=== PATIENT | female | born 1975 | race American Indian/Alaskan Native ===

== ENCOUNTER 2017-02-28 18:50 | Emergency (ER) | payer OTHER ==
--- NOTE | 2017-02-28 19:59 | Emergency Department Report ---
ED ENT HPI - General Chief complaint: Dental/Oral Stated complaint: LEFT SIDE JAW SWOLLE, TOOTHACHE Time Seen by Provider: 02/28/17 19:16 Source: patient Mode of arrival: Ambulatory Limitations: No Limitations - History of Present Illness Initial comments: Patient presents to ED with c/o left lower tooth pain for the past week, worsening with time; denies facial swelling, fevers, bleeding and drainage; made an appt with dentist for upcoming Thursday; has been taking ibuprofen which has been helping temporarily MD complaint: tooth pain Onset/Timin -: week(s) Location: tongue Severity: moderate Quality: aching Consistency: constant Improves with: NSAID Worsens with: eating Context- Dental: history of dental caries Associated Symptoms: gum swelling, toothache. denies: fever, cough, pain with swallowing, sore throat, tinnitus, hearing loss, discharge from ear, rhinorrhea - Related Data Previous Rx's Medication Instructions Recorded Last Taken Type Penicillin V Potassium 500 mg PO 4XD #28 tablet 02/28/17 Unknown Rx traMADol [Ultram 50 MG tab] 50 mg PO Q6HR PRN #12 tablet 02/28/17 Unknown Rx Allergies Allergy/AdvReac Type Severity Reaction Status Date / Time No Known Allergies Allergy Unverified 02/28/17 19:06 ED Dental HPI - General Chief complaint: Dental/Oral Stated complaint: LEFT SIDE JAW SWOLLE, TOOTHACHE Time Seen by Provider: 02/28/17 19:16 Source: patient Mode of arrival: Ambulatory Limitations: No Limitations - Related Data Previous Rx's Medication Instructions Recorded Last Taken Type Penicillin V Potassium 500 mg PO 4XD #28 tablet 02/28/17 Unknown Rx traMADol [Ultram 50 MG tab] 50 mg PO Q6HR PRN #12 tablet 02/28/17 Unknown Rx Allergies Allergy/AdvReac Type Severity Reaction Status Date / Time No Known Allergies Allergy Unverified 02/28/17 19:06 ED Review of Systems ROS: Stated complaint: LEFT SIDE JAW SWOLLE, TOOTHACHE Other details as noted in HPI Constitutional: denies: chills, fever ENT: dental pain. denies: ear pain, throat pain, hearing loss, congestion Respiratory: denies: cough, shortness of breath Cardiovascular: denies: chest pain, palpitations Gastrointestinal: denies: nausea, vomiting Skin: denies: rash Neurological: denies: headache ED Past Medical Hx - Past Medical History Previous Medical History?: Yes - Surgical History Past Surgical History?: Yes - Social History Smoking Status: Never Smoker Substance Use Type: None - Medications Home Medications: Home Medications Medication Instructions Recorded Confirmed Last Taken Type Penicillin V Potassium 500 mg PO 4XD #28 tablet 02/28/17 Unknown Rx traMADol [Ultram 50 MG tab] 50 mg PO Q6HR PRN #12 tablet 02/28/17 Unknown Rx ED Physical Exam - General Limitations: No Limitations General appearance: alert, in no apparent distress - Head Head exam: Present: atraumatic, normocephalic - Eye Eye exam: Present: normal appearance, PERRL, EOMI Pupils: Present: normal accommodation - ENT ENT exam: Present: normal orophraynx, mucous membranes moist - Expanded ENT Exam Expanded Teeth exam: Present: dental caries (multiple teeth with caries; tooth 19 also has caries, has surrounding gum edema, no bleeding or drainage), fractured tooth # (19), dental tenderness # (19) - Neck Neck exam: Present: normal inspection, full ROM. Absent: tenderness, lymphadenopathy - Respiratory Respiratory exam: Present: normal lung sounds bilaterally. Absent: respiratory distress, wheezes, rales, rhonchi - Cardiovascular Cardiovascular Exam: Present: regular rate, normal rhythm, normal heart sounds - Neurological Exam Neurological exam: Present: alert, oriented X3, normal gait - Psychiatric Psychiatric exam: Present: normal affect, normal mood - Skin Skin exam: Present: warm, dry, intact, normal color. Absent: rash ED Course Vital Signs 02/28/17 19:04 Temperature 98 F Pulse Rate 85 Respiratory 18 Rate Blood Pressure 154/94 O2 Sat by Pulse 100 Oximetry ED Medical Decision Making - Medical Decision Making Told patient to complete ABX and follow up with her dentist appt on Thursday, she verbalized understanding Critical care attestation.: If time is entered above; I have spent that time in minutes in the direct care of this critically ill patient, excluding procedure time. ED Disposition Clinical Impression: Dental abscess Disposition: - TO HOME OR SELFCARE Is pt being admited?: No Condition: Stable Instructions: Dental Abscess (ED) Prescriptions: Penicillin V Potassium 500 mg PO 4XD #28 tablet traMADol [Ultram 50 MG tab] 50 mg PO Q6HR PRN #12 tablet PRN Reason: Pain Referrals: [facility] [Outside] - 3-5 Days Time of Disposition: 20:08 Print Language: KHMER
[2017-02-28 20:37] VITALS: BP 138/94
== END 2017-02-28 20:38 | disposition home or self-care (01) ==
LOC: ED 18:50
DX: K04.7 Periapical abscess without sinus (principal)
CPT/HCPCS: 99282